=== PATIENT | female | born 1970 | race Caucasian/White ===

== ENCOUNTER 2017-05-30 21:16 | Emergency (ER) | payer BC, OTHER ==
[2017-05-30 22:06] LABS: #Basophils 0.1 thou/uL (0.0-0.2); #Eosinphils 0.1 thou/uL (0.0-0.7); #Monocytes 0.6 thou/uL (0.11-0.59); %Basophils 0.8 % (0.0-1.0); %Eosinophils 0.8 % (0.0-10.0); %Lymphocytes 18.8 % (21.0-51.0); %Monocytes 5.5 % (0.0-10.0); Hemoglobin 13.1 g/dL (12.0-16.0); Mean Corpuscular HGB CONC 33.5 g/dL (32.0-36.0); Mean Corpuscular Hemoglobin 30.6 pg (27.0-31.0); Mean Corpuscular Volume 91.5 fl (81.0-99.0); Mean Platelet Volume 8.1 fL (7.4-10.4); Platelet Count 263 thou/uL (130-400); RBC Distribution Width 13.4 % (11.5-14.5); Red Blood Cell (RBC) Count 4.26 mill/uL (4.20-5.40); White Blood Cell (WBC) Count 10.8 thou/uL (4.8-10.8)
[2017-05-30 22:18] LABS: Anion Gap 11 mmol/L (10-20); BUN (Urea Nitrogen) 6 mg/dL (7.0-18.7); CK (CPK) 192 U/L (29-168); Calc. Creatinine Clearance 0 mL/min (70-130); Carbon Dioxide 22 mmol/L (22-29); Chloride 107 mmol/L (98-107); Estimated GFR-MDRD Greater than 90; Glucose 94 mg/dL (70-105); Potassium 4.1 mmol/L (3.5-5.1); Sodium 136 mmol/L (136-145)
--- NOTE | 2017-05-30 22:55 | CT ---
CT CERVICAL SPINE WITHOUT CONTRAST: History: Fall from stranding after losing consciousness. Neck pain. FINDINGS/IMPRESSION: There is loss of cervical lordosis with straightening of the cervical spine. Degenerative changes are seen, most prominent at the C5-6 level. No acute fracture or subluxation is identified. POS: [facility]
--- NOTE | 2017-05-30 22:58 | CT ---
CT BRAIN WITHOUT CONTRAST: History: 46-year-old female with fall from standing after loss of consciousness. Syncope. Patient pas sed out for 45-seconds. FINDINGS: No evidence of infract, hemorrhage, midline shift or abnormal extraaxial fluid collections are seen. The ventricular size is normal and the basilar cisterns patent. Bony calvarium is intact. The visuali zed paranasal sinuses and mastoids are well aerated. IMPRESSION: No CT evidence of acute intracranial process. POS: [facility]
--- NOTE | 2017-05-30 23:00 | CT ---
CT FACIAL BONES: History: Fall from standing after losing consciousness, hitting her chin on the floor with chipped to oth. Facial pain. FINDINGS: No facial bone fracture is seen. There is mucosal disease in the paranasal sinuses. No temporomandibu lar dislocation is identified. No airfluid levels are noted in the paranasal sinuses. The mastoid air cells are clear. IMPRESSION: No CT evidence of facial bone fracture. POS: [facility]
== END 2017-05-30 22:47 | disposition home or self-care (01) ==
LOC: ERS 21:16
DX: S02.42XA Fracture of alveolus of maxilla, initial encounter for closed fracture (principal); W19.XXXA Unspecified fall, initial encounter
CPT/HCPCS: 36415; 70450; 70486; 72125; 80048; 82550; 85025; 90471; 96360

== ENCOUNTER 2019-06-26 13:25 | Outpatient (CLI) | payer OTHER ==
--- NOTE | 2019-06-26 13:39 | RAD ---
Exam:3 views left wrist HISTORY: Pain. Fall. COMPARISON: None FINDINGS: Preserved joint spaces. With regard to the carpal bones, no fracture, cortical irregularity or periosteal reaction. Nondisplaced radial styloid fracture. IMPRESSION: Nondisplaced radial styloid fracture.
== END 2019-06-26 13:26 | disposition home or self-care (01) ==
LOC: RAD-FRANK 13:25
PROVIDERS: ATTEND Nurse Practitioner Family
DX: M25.532 Pain in left wrist (principal); S52.515A Nondisplaced fracture of left radial styloid process, initial encounter for closed fracture